=== PATIENT | female | born 1980 | race Caucasian/White ===

== ENCOUNTER 2016-08-23 11:05 | Emergency (ER) | payer OTHER ==
[2016-08-23 11:05] VITALS: BMI 51.0
[2016-08-23 11:13] VITALS: PULSE 72
--- NOTE | 2016-08-23 13:18 | C.PDOC ---
History Of Present Illness 35 y/o female presents to ED with complaints of left knee pain with associated swelling since last night. Patient states she was on stage last night in [place] and jumped off landing on both feet. Pain is rated a 6/10 and is described as throbbing and constant with no radiation. Patient is able to bear weight with difficulty and denies Headache, neck pain or any other complaints at this time. Time Seen by Provider: 08/23/16 12:10 Chief Complaint (Nursing): Lower Extremity Problem/Injury History Per: Patient History/Exam Limitations: no limitations Onset/Duration Of Symptoms: Days Current Symptoms Are (Timing): Still Present Past Medical History Reviewed: Historical Data, Nursing Documentation, Vital Signs Vital Signs: Last Vital Signs Temp 97.7 F 08/23/16 13:35 Pulse 72 08/23/16 13:35 Resp 20 08/23/16 13:35 BP 91/43 L 08/23/16 13:35 Pulse Ox 99 08/23/16 16:12 Surgical History: Appendectomy, Cholecystectomy - [facility] Procedures LOW CERVICAL (10/03/13) Family History: States: No Known Family Hx - Social History Hx Alcohol Use: No Hx Substance Use: No - Immunization History Hx Tetanus Toxoid Vaccination: No Hx Influenza Vaccination: No Hx Pneumococcal Vaccination: No Review Of Systems Except As Marked, All Systems Reviewed And Found Negative. Musculoskeletal: Positive for: Leg Pain. Negative for: Neck Pain Skin: Negative for: Rash Neurological: Negative for: Headache, Dizziness Physical Exam - Physical Exam Appears: Non-toxic, No Acute Distress Skin: Normal Color, Warm Head: Atraumatic, Normacephalic Neck: Normal ROM Extremity: Tenderness (Tenderness to left lateral knee), Capillary Refill (<2 seconds), No Deformity, Swelling (Left knee swelling to lateral aspect, no ecchymosis) Neurological/Psych: Oriented x3, Normal Motor, Normal Sensation, Normal Reflexes ED Course And Treatment O2 Sat by Pulse Oximetry: 99 (RA) Pulse Ox Interpretation: Normal Medical Decision Making Medical Decision Making: Xray was done shown no knee fracture Patient was D/c home with knee mobilizer Disposition Counseled Patient/Family Regarding: Studies Performed, Diagnosis, Need For Followup, Rx Given - Disposition Referrals: [facility] [Outside] Disposition: HOME/ ROUTINE Disposition Time: 13:16 Condition: STABLE Additional Instructions: Follow up with your doctor or clinic. Prescriptions: Ibuprofen [Motrin] 600 mg PO TID #15 tab Instructions: RICE Therapy (ED) Forms: General Discharge Instructions, Work Excuse - POA Present On Arrival: None - Clinical Impression Clinical Impression: Muscle strain, Joint pain - Scribe Statement The provider has reviewed the documentation as recorded by the [place] All medical record entries made by the [place] were at my direction and personally dictated by me. I have reviewed the chart and agree that the record accurately reflects my personal performance of the history, physical exam, medical decision making, and the department course for this patient. I have also personally directed, reviewed, and agree with the discharge instructions and disposition.
[2016-08-23 13:36] VITALS: BP 91/43; RESP 20; TEMP 97.7; O2SAT 99
--- NOTE | 2016-08-23 13:49 | RAD ---
PROCEDURE: Left Knee Radiographs. HISTORY: Pain. COMPARISON: None. FINDINGS: BONES: Bone alignment and mineralization are normal. No fracture or bone destruction. JOINTS: Normal. No osteoarthritis. JOINT EFFUSION: There is a small suprapatellar joint effusion. OTHER FINDINGS: None. IMPRESSION: No acute fracture or dislocation. Small suprapatellar joint effusion.
== END 2016-08-23 13:36 | disposition home or self-care (01) ==
LOC: C.ER 11:05
DX: S86.812A Strain of other muscle(s) and tendon(s) at lower leg level, left leg, initial encounter (principal); W17.89XA Other fall from one level to another, initial encounter; Y93.89 Activity, other specified; Y92.89 Other specified places as the place of occurrence of the external cause

== ENCOUNTER 2017-02-15 19:57 | Emergency (ER) | payer MEDICAID ==
[2017-02-15 19:57] VITALS: BMI 51.0
[2017-02-15] MEDS ORDERED: Lactated Ringer's 1,000 ML IVB STA (20:29)
[2017-02-15] MEDS ORDERED: Belladonna-Phenobarbital PO STA (20:29)
[2017-02-15] MEDS ORDERED: Belladonna-Phenobarbital ONE (20:50)
[2017-02-15] MEDS ORDERED: Lactated Ringer's 1,000 ML ONE (20:50)
[2017-02-15 21:00] LABS: RBC URINE 1 /hpf (0-3); URINE BILIRUBIN NEGATIVE (NEGATIVE); URINE COLOR Yellow (YELLOW); URINE GLUCOSE (UA) NORMAL (Normal); URINE KETONE NEGATIVE (NEGATIVE); URINE LEUKOCYTE ESTERASE NEG Leu/uL (Negative); URINE PROTEIN NEGATIVE (NEGATIVE); URINE UROBILINOGEN NORMAL mg/dL (0.2-1.0); WBC URINE 1 /hpf (0-5)
[2017-02-15 21:04] LABS: URINE BACTERIA RARE (<OCC)
[2017-02-15 21:05] LABS: URINE BLOOD NEGATIVE (NEGATIVE)
[2017-02-15 21:09] LABS: ALB/GLOB RATIO 1.5 (1.0-2.1); ALKALINE PHOSPHATASE 58 U/L (38-126); ALT/SGPT 41 U/L (9-52); AST/SGOT 47 U/L (14-36); BILIRUBIN,TOTAL 0.7 mg/dL (0.2-1.3); BLOOD UREA NITROGEN 14 mg/dL (7-17); CARBON DIOXIDE 21 mmol/L (22-30); CHLORIDE 102 mmol/L (98-107); GFR AFRICAN-AMERICAN > 60; GLUCOSE,RANDOM 81 mg/dL (65-105); POTASSIUM 3.9 mmol/L (3.6-5.2); SODIUM 134 mmol/L (132-148); TOTAL PROTEIN 7.3 g/dL (6.3-8.3)
[2017-02-15 21:13] LABS: BASO # 0.1 K/uL (0.0-0.2); BASO % 1.2 % (0.0-2.0); EOS # 0.1 K/uL (0.0-0.7); EOS % 0.8 % (0.0-4.0); LYMPH % 29.1 % (20.0-40.0); MEAN CORPUSCULAR HEMOGLOBIN 26.4 pg (27.0-31.0); MEAN CORPUSCULAR HGB CONC 33.3 g/dL (33.0-37.0); MEAN PLATELET VOLUME 8.9 fL (7.2-11.7); MONO # 0.5 K/uL (0.0-0.8); MONO % 4.5 % (0.0-10.0); NRBC % 0.1 % (0.0-2.0); RED CELL DISTRIBUTION WIDTH 16.1 % (11.5-14.5); WHITE BLOOD COUNT 10.1 K/uL (4.8-10.8)
[2017-02-15 21:14] LABS: MEAN CELL VOLUME 79.3 fL (81.0-99.0)
--- NOTE | 2017-02-15 21:17 | C.PDOC ---
Time Seen by Provider: 02/15/17 20:24 Chief Complaint (Nursing): Abdominal Pain History Per: Patient, Family Onset/Duration Of Symptoms: Days (3) Current Symptoms Are (Timing): Still Present Severity: Moderate Location Of Pain/Discomfort: Epigastric, LLQ Radiation Of Pain To:: None Quality Of Discomfort: Cramping, "Pain" Associated Symptoms: Nausea, Vomiting, Diarrhea Exacerbating Factors: Food Alleviating Factors: None Last Bowel Movement: Today Recent travel outside of the [place]: No Additional History Per: Prior Records Abnormal Vaginal Bleeding: No Past Medical History Reviewed: Historical Data, Nursing Documentation, Vital Signs Vital Signs: Last Vital Signs Temp 98.1 F 02/15/17 20:02 Pulse 83 02/15/17 20:02 Resp 20 02/15/17 20:02 BP 103/66 02/15/17 20:02 Pulse Ox 97 02/15/17 21:22 - Medical History PMH: No Chronic Diseases Surgical History: Appendectomy, Cholecystectomy - [facility] Procedures LOW CERVICAL (10/03/13) Family History: States: Unknown Family Hx - Social History Hx Alcohol Use: No Hx Substance Use: No - Immunization History Hx Tetanus Toxoid Vaccination: No Hx Influenza Vaccination: No Hx Pneumococcal Vaccination: No Review Of Systems Except As Marked, All Systems Reviewed And Found Negative. Constitutional: Negative for: Fever, Weakness Cardiovascular: Negative for: Chest Pain Respiratory: Negative for: Shortness of Breath Gastrointestinal: Positive for: Nausea, Vomiting, Abdominal Pain, Diarrhea. Negative for: Melena, Hematochezia, Hematemesis Genitourinary: Negative for: Dysuria Musculoskeletal: Negative for: Neck Pain Skin: Negative for: Rash Neurological: Negative for: Weakness, Numbness Physical Exam - Physical Exam Appears: Non-toxic, No Acute Distress Skin: Normal Color, Warm, Dry, No Rash Head: Atraumatic, Normacephalic Eye(s): bilateral: Normal Inspection, PERRL, EOMI Neck: Normal ROM, Supple Cardiovascular: Rhythm Regular Respiratory: Normal Breath Sounds, No Accessory Muscle Use Gastrointestinal/Abdominal: Soft, Tenderness (mild, nonspecific), No Guarding, No Rebound Back: No CVA Tenderness Extremity: Normal ROM Neurological/Psych: Oriented x3, Normal Motor, Normal Sensation ED Course And Treatment - Laboratory Results Result Diagrams: 02/15/17 20:52 02/15/17 20:52 Lab Interpretation: No Acute Changes Urine POC: Negative O2 Sat by Pulse Oximetry: 97 Pulse Ox Interpretation: Normal Progress - Interventions Interventions:: Observation, Intravenous fluid - Medications Administered Intravenous: Antiemetic, H-2 marcia - Data Reviewed Data Reviewed: Lab, Old records - Patient Status Patient status: Mostly improved - Continuity of Care Discussed patient case with:: Patient - Patient Plan Patient Plan: Discharge, F/U with PCP Disposition Counseled Patient/Family Regarding: Studies Performed, Diagnosis, Need For Followup, Rx Given - Disposition Referrals: Mauri Barrett MD [Medical Doctor] - Disposition: HOME/ ROUTINE Disposition Time: 21:38 Condition: IMPROVED Additional Instructions: Drink plenty of fluids (Gatorade). Follow up with your doctor. Return to the ER if you develop fever, vomiting, bloody stools, worsening of symptoms or if you have any other concerns. Prescriptions: Bismuth Subsalicylate [Pepto Bismol] 2 tab PO Q1 PRN #16 ctb PRN Reason: Diarrhea Ondansetron [Zofran] 4 mg PO Q8H PRN #15 tab PRN Reason: Nausea/Vomiting Instructions: Gastroenteritis (ED) Forms: [employer] (M[place]ese) Print Language: JAMAICAN - Clinical Impression Clinical Impression: Abdominal pain, Diarrhea
[2017-02-15 21:49] VITALS: BP 118/76; PULSE 65; RESP 18; TEMP 97.3; O2SAT 100
== END 2017-02-15 21:52 | disposition home or self-care (01) ==
LOC: C.ER 19:57
DX: R19.7 Diarrhea, unspecified (principal); R10.9 Unspecified abdominal pain
CPT/HCPCS: 80053; 81001; 83690; 84703; 85025; 96374; 96375; 99284; J2405; J7120